=== PATIENT | female | born 1955 | race Caucasian/White ===

== ENCOUNTER 2019-04-11 14:47 | Inpatient (IN) | payer OTHER ==
[~2019-04-11] VITALS: Ht 157.5 cm; Wt 78.0 kg
[2019-04-11 13:45] VITALS: BP 151/66
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
[2019-04-11] MEDS ORDERED: LEXAPRO 10 MG T10 M1 PO (15:37)
[2019-04-11] MEDS ORDERED: LOTREL 5-10 MG1 EACH PO (15:37)
[2019-04-11] MEDS ORDERED: LEVEMIR SUBQ (15:38)
[2019-04-11] MEDS ORDERED: NOVOLOG100 UNIT/1 SUBQ (15:39)
[2019-04-11] MEDS ORDERED: ASPIR 8181 MG PO (15:40)
[2019-04-11] MEDS ORDERED: METFORMIN HCL500 MG PO (15:41)
[2019-04-11] MEDS ORDERED: CRESTOR20 MG PO (15:42)
[2019-04-11] MEDS ORDERED: OMEPRAZOLE40 MG PO (15:42)
[2019-04-11] MEDS ORDERED: OXYBUTYNIN 5 MG5 M2 PO (15:43)
[2019-04-11] MEDS ORDERED: VITAMIN D1000 UNI1 PO (15:47)
[2019-04-11] MEDS ORDERED: MOBIC15 MG PO (15:49)
[2019-04-11] MEDS ORDERED: VITAMIN D5000 UNIT PO (15:50)
[2019-04-11] MEDS ORDERED: TRAMADOL 50 MG50 MG PO (15:52)
[2019-04-11] MEDS ORDERED: ZANAFLEX2 M1 PO (15:53)
--- NOTE | 2019-04-11 18:35 | NUR ---
PT DAUGHTER HYUN CALLED AND ASKING IF SHE COULD LEAVE THIS FACILITY. THIS WATER RESOURCES ENGINEER STATED THAT IT IS BEST TO SEE IN AM DUE TO THE SITUATION. THIS IS THE SECOND TIME THAT THE DAUGHTER HAS ASKED ABOUT HER LEAVING VOLUNTARY.
[2019-04-11 20:00] VITALS: BP 114/57
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
--- NOTE | 2019-04-12 05:16 | NUR ---
Patient has appeared somewhat restless through the night. Patient presented to the nurses station reporting lower back pain. Patient offered PRN Tylenol. Patient declined. Patient reports that it could possibly be kidney pain. Patient reports having a history of urinary tract infections. Patient also reports having increased frequency and urgency over the last several days. Labs reviewed from . Appears that UA was not obtained at ED. Annmarie Hartmann NP, notified. Order obtained for UA. Patient notified on new order. Waiting to collect UA at this time.
[2019-04-12 07:30] VITALS: BP 96/42
[2019-04-12 12:57] LABS: URINE BILIRUBIN NEGATIVE (Negative); URINE BLOOD NEGATIVE (Negative); URINE CLARITY CLEAR; URINE COLOR YELLOW; URINE GLUCOSE-RANDOM* NEGATIVE (Negative); URINE KETONES NEGATIVE (Negative); URINE LEUKOCYTES 1+ (Negative); URINE NITRITE NEGATIVE (Negative); URINE PROTEIN (DIPSTICK) TRACE (Negative); URINE SPECIFIC GRAVITY >= 1.030 (1.005-1.035); URINE UROBILINOGEN 0.2 E.U./dl (0.2-1.0)
[2019-04-12 13:02] LABS: SQUAMOUS >10 Many /LPF (0-3)
[2019-04-12 13:03] LABS: CALCIUM OXALATE >10 Many /LPF (None Seen); CASTS None Seen /LPF (None Seen); CRYSTALS None Seen /LPF (None Seen); MUCUS 0-3 Light strn/LPF (None Seen)
[2019-04-12 13:04] LABS: URINE WBC 6-15 Few /HPF (0-5)
[2019-04-12 13:05] LABS: BACTERIA None Seen /HPF (None Seen); URINE RBC 0-2 Rare /HPF (0-2)
--- NOTE | 2019-04-12 15:27 | NUR ---
NOTED TO BE HYPERVERBAL AND CIRCUMSTANTIAL DURING 1;1 INTERACTION THIS AM-TENDS TO MINIMIZE ANY ISSUES WITH MOOD,MOOD SWINGS,FEEELINGS OF ANGER OR FRUSTRATION STATING "I JUST HAVE TO BE ABLE TO ACCEPT HELP AND I WILL DO THAT NOW" IS NOTED TO BE PASSIVE IN [place]-TENDING TO GO ALONG WITH WISHES OF FEMALE PEER STATING "I JUST WANT TO AVOID ANY CONFLICT-STATES THIS IS HER POSITION AT HOME WELL AND SHE HAS A DIFFICULT TIME ASSERTING SELF WITH FAMILY MEMBERS. DOES REPORT LOW BACK PAIN RATED A 4 ON 1-10 SCALE STATING FEELS LIKE "IT MAY BE MY KIDNEYS" UA COLLECTED AND SENT TO LAB PER MD ORDER
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
[2019-04-12 19:18] VITALS: BP 132/68
[2019-04-12 19:30] VITALS: BP 132/68
--- NOTE | 2019-04-12 22:47 | NUR ---
Patient pleasant and cooperative. Alert and oriented x4. Denies SI/HI at this time. Patient denies feeling depressed or hopeless but reports feeling sad and heartbroken. Patient reports that she feels like she is giving so much to everyone but nobody helps her when she needs it. Reports that she feels exhausted. Patient called home this evening and spoke to her family. Patient reported pain to her lower back and received Tylenol 650mg po PRN. Patient sat with another patient throughout the evening and was comforting and loving toward her. Patient reports that one of her strengths is being a loving, caring person. Patient is hyperverbal. She enjoys giving a long story before answering yes/no questions. Patient reports that she is sad about her and the disease process. Reports that she loses a little bit more of her each day. Patient also reports that she is fearful being away from him because if something should happen to him, she would feel guilty for not being there. Patient took medications whole without difficulty. Patient ate 100% snack this evening. Currently watching TV in activity room.
[2019-04-13 03:18] LABS: URINE BILIRUBIN NEGATIVE (Negative); URINE BLOOD NEGATIVE (Negative); URINE CLARITY CLEAR; URINE COLOR YELLOW; URINE GLUCOSE-RANDOM* NEGATIVE (Negative); URINE KETONES NEGATIVE (Negative); URINE LEUKOCYTES-REFLEX NEGATIVE (Negative); URINE NITRITE-REFLEX NEGATIVE (Negative); URINE PROTEIN (DIPSTICK) NEGATIVE (Negative); URINE UROBILINOGEN 0.2 E.U./dl (0.2-1.0)
[2019-04-13 07:10] VITALS: BP 98/51
--- NOTE | 2019-04-13 10:28 | NUR ---
Assess due to RD consult received. Pt reports wt down about 5 lb recently from fatigue and no appetite however now eating excellent and enjoys the food here. Has hx diabetes, BG under excellent control so can keep on regular diet. Weigh weekly. Low nutrition risk
--- NOTE | 2019-04-13 11:08 | NUR ---
FULL RANGE AFFECT OBSERVED DURING 1;1 WITH NURSING STAFF. SPEECH REMAINS SLIGHTLY PRESSURED,MILDLY HYPERVERBAL. DURING 1;1 SHOWS IMPROVED INSIGHT RE NEED FOR DEVELOPING COPING SKILLS TO ASSIST ON DC. DENIES SI/SH/HI. IS NOTED TO BE SOMATIC PREOCCUPIED FOCUSED ON DISCREPENCIES IN HOSPITAL AND HOME MEDICATIONS.
[2019-04-13] MEDS ORDERED: TRAZODONE HCL50 MG PO (12:58)
[2019-04-13 13:36] VITALS: BP 98/51
[2019-04-13 13:37] VITALS: BP 98/51
[2019-04-13 14:15] VITALS: BP 98/51
--- NOTE | 2019-04-13 14:17 | NUR ---
Patient Name: TESS SUN Admission Date: 04/11/19 DISCHARGE PLAN: Pt will d/c to home with her . Care Assessment: Pt was assessed by Dr. Reese, and diagnosed with major Depression Disorder. Level II Assessment: None Transportation: Pt will be transported by her friend of the family. Special Instructions/Notes: GELY spoke with the family on the importance of removing the gun, medication or danger objects that will caused pt to afflict pain. Pt daughter mention that gun has being removed from the home. Pt family will observe her, and make sure she is safe. GELY was able to speak with the pt concerning a safety plan. DISCHARGE TO FACILITY: Home Facility: Phone: Fax: Address: [address] [place] [id number] Contact Name: Phone: PCP: MARISA Psychiatrist: [facility], April 20, 2019 at 10:00am.
--- NOTE | 2019-04-13 14:23 | NUR ---
DISCHARGE INSTRUCTIONS REVIEWED WITH PT AND FRIEND MILAN-INCLUDING MEDICATIONS AT TIME OF DISCHARGE-RECOMMENDATIONS FOR FOLLOW UP CARE WITH PSYCHIATRIST,THERAPIST-ENCOURAGED. PT DENIES SUICIDAL AND HOMICIDAL IDEATION AT TIME OF DISCHARGE, STATES IS EAGER TO BE HOME-SMILING/LAUGHING UPON DISCHARGE-ABLE TO ID POTENTIAL TRIGGERS AND HEALTHY COPING SKILLS FOR FUTURE USE.
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
== END 2019-04-13 13:30 | disposition home or self-care (01) | DRG 885 ==
LOC: SBH 14:47
PROVIDERS: Nurse Practitioner Family; ADMIT Psychiatry & Neurology Psychiatry
DX: F33.2 Major depressive disorder, recurrent severe without psychotic features (principal); R45.851 Suicidal ideations; G89.29 Other chronic pain; I10 Essential (primary) hypertension; F41.9 Anxiety disorder, unspecified; E11.9 Type 2 diabetes mellitus without complications; E78.5 Hyperlipidemia, unspecified; E66.9 Obesity, unspecified; Z68.31 Body mass index [BMI] 31.0-31.9, adult; Z79.84 Long term (current) use of oral hypoglycemic drugs; Z88.7 Allergy status to serum and vaccine; Z82.0 Family history of epilepsy and other diseases of the nervous system
CPT/HCPCS: 10880